=== PATIENT | male | born 1945 | race Caucasian/White ===

== ENCOUNTER 2016-09-12 14:51 | Emergency (ER) | payer MEDICAID, OTHER ==
[2016-09-12 14:59] VITALS: RESP 18; TEMP 97.7
[2016-09-12] MEDS ORDERED: LET GEL TOPICAL 1 EA SYR TP ONE ×2 (15:06→15:24)
[2016-09-12] MEDS ORDERED: NS 1,000 ML IV ONE (15:21)
--- NOTE | 2016-09-12 15:48 | EDPHY ---
H & P Stated Complaint: fall with skin tears Time Seen by Provider: 09/12/16 15:14 HPI/ROS: CHIEF COMPLAINT: Mechanical fall, multiple facial abrasions, left hip pain, slight headache/slurred speech, right finger pain HISTORY OF PRESENT ILLNESS: The patient presents to the emergency department after he had a mechanical fall while trimming shrubs today. The patient reportedly fell down a steep embankment. He struck his head sustaining multiple superficial abrasions primarily to the left side of his head and left ear. The patient also complains of left rib pain, left hip pain and right finger pain. The patient is currently on aspirin. He denies any acute numbness or weakness. The patient denies back pain, difficulty breathing or any additional lower extremity complaints. The patient is not anticoagulated. The patient states his symptoms of discomfort are mild to moderate in nature. REVIEW OF SYSTEMS: A comprehensive 10 point review of systems is otherwise negative aside from elements mentioned in the history of present illness. Source: Patient Exam Limitations: No limitations - Personal History Current Tetanus/Diphtheria Vaccine: No Current Tetanus Diphtheria and Acellular Pertussis (TDAP): No - Medical/Surgical History Hx Asthma: No Hx Chronic Respiratory Disease: No Hx Diabetes: No Hx Cardiac Disease: Yes Hx Renal Disease: No Hx Cirrhosis: No Hx Alcoholism: No Hx HIV/AIDS: No Hx Splenectomy or Spleen Trauma: No Other PMH: HTN, [place], - Social History Smoking Status: Heavy smoker - Physical Exam Exam: General Appearance: Alert, no distress Head: Multiple superficial abrasions to left cheek and left ear Eyes: Pupils equal, round, reactive ENT, Mouth: No hemotympanum, no oral trauma Neck: Nontender, trachea midline Respiratory: No chest wall tender, subcutaneous air, lungs clear bilaterally Cardiovascular: Regular rate and rhythm Abdomen: Abdomen is soft and nontender, pelvis stable Skin: Multiple superficial extremity abrasions Back: No midline T/L/S pain Extremities: Mild tenderness to palpation over left greater trochanter, tenderness to palpation left ribs, tenderness to palpation right 5th finger Neurological: A&Ox3, normal motor function, normal sensory exam Constitutional: Initial Vital Signs Temperature (C) 36.5 C 09/12/16 14:56 Heart Rate 85 09/12/16 14:56 Respiratory Rate 18 09/12/16 14:56 Blood Pressure 136/81 H 09/12/16 14:56 O2 Sat (%) 95 09/12/16 14:56 O2 Delivery Mode Room Air Allergies/Adverse Reactions: No Known Allergies Allergy (Unverified 09/12/16 14:59) Home Medications: Medication Instructions Recorded Lisinopril 09/12/16 Zocor 09/12/16 Medical Decision Making - Diagnostics Imaging Results: Imaging Impressions Chest X-Ray 09/12/16 15:24 Impression: 1. No active cardiopulmonary disease seen. Head CT 09/12/16 15:24 Impression: 1. Old trauma to the face. 2. 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 3. No epidural or subdural hematoma. Findings and recommendations discussed with emergency department physician, Bobby Pryor MD at 1600 hours on September 12, 2016. Final report concurs with initial preliminary interpretation. ED Course/Re-evaluation: Additional imaging database Left hip x-ray: Images reviewed by myself, negative for acute fracture Right hand x-ray: Images reviewed by myself, negative for acute fracture. ED course Patient presents to the ED after a fall down a bank approximately 10-15 feet in height. The patient was taken for a stat CT scan of his head given his head trauma and reported slurred speech. Fortunately the results of this study demonstrate no evidence of an acute fracture or intracranial hemorrhage. The patient also complained of pain in his right hand, chest and left hip. X-rays of these areas also demonstrated no fracture. Patient had multiple superficial abrasions which were cleaned and dressed in the emergency department. Patient underwent 3 serial examinations by myself over a 4 hour period. The patient is ambulatory, his neurologic status returned to normal. He has no complaints of headache and no additional traumatic injury noted on secondary survey. The patient will be discharged home with customary aftercare instructions and return precautions. Differential Diagnosis: Differential diagnosis considered includes intracranial hemorrhage, skull fracture, hip fracture, rib fracture, pneumothorax, hand fracture, laceration - Data Points Laboratory Results: Laboratory Results 09/12/16 16:40 09/12/16 15:35 09/12/16 09/12/16 16:40 15:35 WBC 10.02 10^3/uL H 10^3/uL (3.80-9.50) RBC 4.48 10^6/uL 10^6/uL (4.40-6.38) Hgb 14.9 g/dL g/dL (13.7-17.5) Hct 42.5 % % (40.0-51.0) MCV 94.9 fL fL (81.5-99.8) MCH 33.3 pg pg (27.9-34.1) MCHC 35.1 g/dL g/dL (32.4-36.7) RDW 13.3 % % (11.5-15.2) Plt Count 155 10^3/uL 10^3/uL (150-400) MPV 9.6 fL fL (8.7-11.7) Neut % (Auto) 78.4 % H % (39.3-74.2) Lymph % (Auto) 14.3 % L % (15.0-45.0) [place] % (Auto) 6.0 % % (4.5-13.0) Eos % (Auto) 0.4 % L % (0.6-7.6) Baso % (Auto) 0.5 % % (0.3-1.7) Nucleat RBC Rel Count 0.0 % % (0.0-0.2) Absolute Neuts (auto) 7.86 10^3/uL H 10^3/uL (1.70-6.50) Absolute Lymphs (auto) 1.43 10^3/uL 10^3/uL (1.00-3.00) Absolute Monos (auto) 0.60 10^3/uL 10^3/uL (0.30-0.80) Absolute Eos (auto) 0.04 10^3/uL 10^3/uL (0.03-0.40) Absolute Basos (auto) 0.05 10^3/uL 10^3/uL (0.02-0.10) Absolute Nucleated RBC 0.00 10^3/uL 10^3/uL (0-0.01) Immature Gran % 0.4 % % (0.0-1.1) Immature Gran # 0.04 10^3/uL 10^3/uL (0.00-0.10) Sodium 139 mEq/L mEq/L (134-144) Potassium 4.2 mEq/L mEq/L (3.5-5.2) Chloride 112 mEq/L H mEq/L (97-110) Carbon Dioxide 18 mEq/l L mEq/l (22-31) Anion Gap 9 mEq/L mEq/L (8-16) BUN 17 mg/dL mg/dL (7-23) Creatinine 1.0 mg/dL mg/dL (0.7-1.3) Estimated GFR > 60 Glucose 97 mg/dL mg/dL (70-100) Calcium 9.4 mg/dL mg/dL (8.5-10.4) Medications Given: Discontinued Medications Sodium Chloride (Ns) 1,000 mls @ 0 mls/hr IV ONCE ONE PRN Reason: Wide Open Stop: 09/12/16 15:22 Last Admin: 09/12/16 15:51 Dose: 1,000 mls Tetracaine/Epinephrine/Lidocaine (Let Gel Topical) 1 ea TP EDNOW ONE Stop: 09/12/16 15:25 Last Admin: 09/12/16 15:51 Dose: 1 ea Departure - Departure Disposition: Home, Routine, Self-Care Clinical Impression: Abrasion, multiple sites, Contusion of left hip, Rib sprain, Sprain, finger Condition: Good Instructions: Musculoskeletal Pain (ED) Additional Instructions: 1. Take Ibuprofen or Motrin 600 mg by mouth three times a day. 2. Return to the ED for severe headache, new pain or other concerns. 3. Please follow up with her primary care provider as needed. 4. Please apply antibiotic ointment to abrasions twice daily for the next week. Return to the ED for any evidence of redness, fever or signs of infection
[2016-09-12 16:06] LABS: ANION GAP 9 mEq/L (8-16); CALCIUM 9.4 mg/dL (8.5-10.4); CARBON DIOXIDE 18 mEq/l (22-31); CHLORIDE 112 mEq/L (97-110); GLOMERULAR FILTRATION RATE > 60; GLUCOSE 97 mg/dL (70-100); POTASSIUM 4.2 mEq/L (3.5-5.2); SODIUM 139 mEq/L (134-144)
[2016-09-12 16:46] LABS: % IMMATURE GRANULYOCYTES 0.4 % (0.0-1.1); ABSOLUTE IMMATURE GRANULOCYTES 0.04 10^3/uL (0.00-0.10); ADD DIFF? NO; ADD MORPH? NO; ADD SCAN? NO; ATYPICAL LYMPHOCYTE FLAG 10 (0-99); FRAGMENT RBC FLAG 0 (0-99); HEMATOCRIT 42.5 % (40.0-51.0); HEMOGLOBIN 14.9 g/dL (13.7-17.5); LEFT SHIFT FLG 0 (0-99); LIPEMIA HEMOLYSIS FLAG 90 (0-99); MEAN CELL HEMOGLOBIN 33.3 pg (27.9-34.1); MEAN CELL HEMOGLOBIN CONCENTR. 35.1 g/dL (32.4-36.7); MEAN CELL VOLUME 94.9 fL (81.5-99.8); MEAN PLATELET VOLUME 9.6 fL (8.7-11.7); PLATELET CLUMPS FLAG 10 (0-99); PLATELET COUNT 155 10^3/uL (150-400); RED BLOOD CELL COUNT 4.48 10^6/uL (4.40-6.38); RED CELL DISTRIBUTION WIDTH 13.3 % (11.5-15.2)
[2016-09-12 17:35] VITALS: BP 165/94; PULSE 70; O2SAT 97
== END 2016-09-12 17:34 | disposition home or self-care (01) ==
DX: S70.02XA Contusion of left hip, initial encounter (principal); S23.41XA Sprain of ribs, initial encounter; S00.81XA Abrasion of other part of head, initial encounter; S00.412A Abrasion of left ear, initial encounter; S63.616A Unspecified sprain of right little finger, initial encounter; I10 Essential (primary) hypertension; I25.2 Old myocardial infarction; F17.200 Nicotine dependence, unspecified, uncomplicated; W17.81XA Fall down embankment (hill), initial encounter